=== PATIENT | male | born 1995 | race Caucasian/White ===

== ENCOUNTER 2020-04-06 02:29 | Emergency (ER) | payer BC ==
[~2020-04-06] VITALS: Ht 177.8 cm; Wt 60.0 kg
[2020-04-06 02:30] VITALS: Ht 177.8 cm; Wt 60.0 kg
[2020-04-06] MEDS ORDERED: HYDROCODON-ACE1 EAC2 PO (02:31)
--- NOTE | 2020-04-06 03:15 | NUR ---
TRAUMA BAND [id number]
--- NOTE | 2020-04-06 03:16 | NUR ---
TRAUMA BAND NUMBER CORRECTED. [id number]
[2020-04-06 03:19] VITALS: BP 105/87
[2020-04-06 04:01] VITALS: BP 127/70
[2020-04-06 05:00] VITALS: BP 111/57
--- NOTE | 2020-04-06 06:43 | NUR ---
REPORT CALLED TO [facility] ON MED SURG
[2020-04-06 07:01] VITALS: BP 116/58
--- NOTE | 2020-04-06 07:10 | NUR ---
PT MOTHER CALLED AND INFORMED OF IMPENDING TRANSFER AT THIS TIME. MOTHER STATES SHE IS GOING TO COME BACK TO ED AT THIS TIME.
--- NOTE | 2020-04-06 08:02 | NUR ---
HOUSE SUP SIGNED PAPERWORK AND [facility] CALLED AT THIS TIME. PER LIFENET APPROX 1 HOUR WAIT TIME.
[2020-04-06 08:23] VITALS: BP 117/63
--- NOTE | 2020-04-06 08:30 | NUR ---
MOTHER OF PT PRESENT AT THIS TIME, UP AT NURSES STATION SPEAKING WITH DR. MORSE ABOUT REASON FOR TRANSFER. SHE GOES BACK TO PT ROOM WHEN CONVERSTAION COMPLETE.
--- NOTE | 2020-04-06 09:00 | NUR ---
EMS RECEIVED PT AT THIS TIME.
--- NOTE | 2020-04-06 09:10 | NUR ---
THIS RN HAS CONVERSATION WITH PT MOTHER IN HALLWAY. PT MOTHER EXPRESSES FRUSTRATION THAT SHE WAS NOT IN THE ROOM WHEN AMBULANCE CREW PICKED PT UP FOR TRANSFER TO [facility]. THIS RN ATTEMPTED TO APOLOGIZE TO PT MOTHER ET SHE DEMANDED TO SPEAK TO AN CROP SPECIALIST. SHE THEN IMMEDIATELY STATED SHE WOULD CALL BACK AND SPEAK TO AN CROP SPECIALIST AT A LATER TIME. THIS RN ASKED PT MOTHER IF SHE WAS PREVENTED FROM BEING IN ROOM WITH SON BY STAFF. SHE STATED SHE HAD NOT EVER BEEN PREVENTED FROM BEING AT PT BEDSIDE. SHE STATED PT HAD BEEN SLEEPING AND SHE CHOSE TO WAIT IN WAITING ROOM. THIS RN OFFERED TO HAVE PT MOTHER SPEAK TO KRIS DAUGHERTY, DIRECTOR OF ED. PT MOTHER REFUSED. THIS RN OFFERED TO GIVE PT MOTHER DRIVING INSTRUCTIONS TO [facility] ET PT MOTHER REFUSED. PT MOTHER EXITS ED VISIBLY ANGRY AND STATING DISPLEASURE WITH NOT SEEING SON PRIOR TO DISCHARGE .
--- NOTE | 2020-04-06 09:10 | NUR ---
MOTHER OF PT UP AT NURSES DESK AT THIS TIME VISIBLY UPSET THAT SHE WAS NOT IN ROOM WHEN PT LEFT WITH EMS. THIS RN UNAWARE THAT PT MOTHER WAS IN WAITING ROOM , THIS RN THOUGHT MOTHER HAD LEFT AFTER VISITING SON. APOLOGY GIVEN TO MOTHER THAT SON LEFT WITH EMS WITHUOT HER BEING IN ROOM. THIS RN EXPLAINED THAT PT HAD LEFT WITH EMS AND SHE COULD MEET PT AT THE ER AT [facility]. CHIEF OF SAFETY AND PROTECTION EXPLAINED THAT IF MOTHER LEFT RIGHT NOW SHE COULD MEET AND POSSIBLY BEAT THE AMBULANCE TO [facility] ED. MOTHER STILL VISIBLY UPSET AND REQUESTS TO LEAVE BEFORE SPEAKING TO MANAGEMENT.
== END 2020-04-06 09:00 | disposition short-term general hospital (02) ==
LOC: D.ER 02:29 → D.MS 03:27 → D.ER 09:00
DX: Z98.890 Other specified postprocedural states (principal); S72.401A Unspecified fracture of lower end of right femur, initial encounter for closed fracture; W18.40XA Slipping, tripping and stumbling without falling, unspecified, initial encounter; Y93.9 Activity, unspecified; Y92.9 Unspecified place or not applicable

== ENCOUNTER 2020-04-07 10:41 | Emergency (ER) | payer BC ==
[~2020-04-07 10:41] MED LIST: HYDROCODON-ACE1 EAC2 PO
[2020-04-07 10:51] VITALS: BP 131/101; Ht 177.8 cm
== END 2020-04-07 13:23 | disposition left against medical advice (07) ==
LOC: D.ER 10:41
DX: S89.91XA Unspecified injury of right lower leg, initial encounter (principal)